=== PATIENT | female | born 1965 | race Caucasian/White ===

== ENCOUNTER 2018-03-23 21:26 | Emergency (ER) | payer BC ==
[2018-03-23 21:38] VITALS: BP 167/93; PULSE 90; TEMP 99.2; BMI 24.6
--- NOTE | 2018-03-23 22:06 | PDOC ---
History of Present Illness - General History Source: Patient Exam Limitations: No Limitations - History of Present Illness Initial Comments: 03/23/18 22:58 The patient is a 52 year old female with a significant past medical history of hypertension who presents to the ED with complaints of throat pain since last night. The patient reports a gradual onset of pain on the left side of her throat last night. She states she took two advil with no relief and did salt water gargles with slight relief. Patient went to Urgent Care earlier today, took an US, was diagnosed with peritonsillar abscess, given amoxicillin and discharged home. Patient was told to come to the ED if symptoms worsened. Patient states her throat pain now radiates to her left ear. Patient states she had a similar episode of peritonsillar abscess over 12 years ago that required outpatient IV antibiotics. Patient notes she has been in contact with people who have cold like symptoms. Denies fever or chills. Denies rhinorrhea. Denies headache. Denies chest pain or shortness of breath. Denies abdominal pain, nausea, vomiting, or diarrhea. Denies any other symptoms. Surgical hx: Tonsillectomy <Beck Panda - Last Filed: 03/23/18 22:58> <Sara Starks - Last Filed: 03/24/18 04:36> - General Chief Complaint: Abscess Boil Stated Complaint: HONG TONSILAR ABSCESS Time Seen by Provider: 03/23/18 21:33 Past History <Beck Panda - Last Filed: 03/23/18 22:58> - Past Medical History COPD: No HTN: Yes - Suicide/Smoking/Psychosocial Hx Smoking History: Never smoked <Sara Starks - Last Filed: 03/24/18 04:36> - Past Medical History Allergies/Adverse Reactions: Allergies Allergy/AdvReac Type Severity Reaction Status Date / Time No Known Allergies Allergy Unverified 03/23/18 21:31 Home Medications: Ambulatory Orders Amlodipine Besylate 5 mg PO DAILY 03/23/18 Amoxicillin/Potassium Clav [Amox-Clav 875-125 mg Tablet] 1 each PO 03/23/18 Review of Systems - Review of Systems Able to Perform ROS?: Yes Comments:: 03/23/18 22:58 CONSTITUTIONAL: Absent: fever, chills, diaphoresis, generalized weakness, malaise, loss of appetite HEENT: + throat pain Absent: rhinorrhea, nasal congestion, mouth swelling, ear pain, eye pain, visual Changes CARDIOVASCULAR: Absent: chest pain, syncope, palpitations, irregular heart rate, lightheadedness , peripheral edema RESPIRATORY: Absent: cough, shortness of breath, dyspnea with exertion, orthopnea, wheezing, stridor, hemoptysis GASTROINTESTINAL: Absent: abdominal pain, abdominal distension, nausea, vomiting, diarrhea, constipation, melena, hematochezia GENITOURINARY: Absent: dysuria, frequency, urgency, hesitancy, hematuria, flank pain, genital pain MUSCULOSKELETAL: Absent: myalgia, arthralgia, joint swelling SKIN: Absent: rash, itching, pallor HEMATOLOGIC/IMMUNOLOGIC: Absent: easy bleeding, easy bruising, lymphadenopathy, frequent infections ENDOCRINE: Absent: unexplained weight gain, unexplained weight loss, heat intolerance, cold intolerance NEUROLOGIC: Absent: headache, focal weakness or paresthesias, dizziness, unsteady gait, seizure, mental status changes, bladder or bowel incontinence PSYCHIATRIC: Absent: anxiety, depression, suicidal or homicidal ideation, hallucinations. All Other Systems: Reviewed and Negative <Beck Panda - Last Filed: 03/23/18 22:58> *Physical Exam - Vital Signs Last Vital Signs Temp Pulse Resp BP Pulse Ox 99.2 F 90 16 167/93 100 03/23/18 21:32 03/23/18 21:32 03/23/18 21:32 03/23/18 21:32 03/23/18 21:32 - Physical Exam Comments: 03/23/18 22:59 GENERAL: The patient is awake, alert, and fully oriented, in no acute distress. HEAD: Normal with no signs of trauma. EYES: Pupils equal, round and reactive to light, extraocular movements intact, sclera anicteric, conjunctiva clear with no pallor. ENT: + Erythema and mild edema of the left peritonsillar area with area of whitish purulent discharge, mildly enlarged left cervical lymph node. Ears normal, nares patent. Moist mucous membranes. NECK: Normal range of motion, supple without lymphadenopathy, JVD, or masses. LUNGS: Breath sounds equal, clear to auscultation bilaterally. No wheeze/ crackles. HEART: Regular rate and rhythm, normal S1 and S2 without murmur or rub. ABDOMEN: Soft/nontender/nondistended. BS wnl. No guarding or rebound. No palpable masses. No hepatosplenomegaly. EXTREMITIES: Normal range of motion, no edema. No clubbing or cyanosis. No cords, erythema, or tenderness. NEUROLOGICAL: Cranial nerves II through XII grossly intact. Normal speech, normal gait. PSYCH: Normal mood, normal affect. SKIN: Warm, Dry, normal turgor, no rashes or lesions noted. <Beck Panda - Last Filed: 03/23/18 22:58> - Vital Signs Last Vital Signs Temp Pulse Resp BP Pulse Ox 99.2 F 90 16 167/93 100 03/23/18 21:32 03/23/18 21:32 03/23/18 21:32 03/23/18 21:32 03/23/18 21:32 <Sara Starks - Last Filed: 03/24/18 04:36> ED Treatment Course - LABORATORY CBC & Chemistry Diagram: 03/23/18 23:05 03/23/18 23:05 <Sara Starks - Last Filed: 03/24/18 04:36> Medical Decision Making - Medical Decision Making Documentation has been prepared under my direction and personally reviewed by me in its entirety. I attest that this documented accurately reflects all work, treatment, procedures and medical decision making performed by me. As noted above, this 52-year-old woman was referred here from urgent care clinic where she was seen earlier with probable peritonsillar abscess on the left side of her pharynx (Was told to come to the emergency room if she had worsening pain). Patient had previous episode of peritonsillar abscess more than 12 years ago (patient is s/p tonsillectomy but it is thought that there was some residual lymphatic tissue retained). Although she had taken one dose of Augmentin, she continued to have pain in the area around the abscess so she came to the emergency room. Patient states that she can feel the area around the abscess draining purulent material. Exam as noted. Small amount of free pus on the left side of the pharynx noted without significant asymmetry of uvula or other evidence of significant edema Because of patient's worsening symptoms, CBC/chemistry profile sent. White blood cell count mildly elevated at 12,000; remainder of the laboratory evaluation including creatinine is normal Soft tissue CT of the neck with IV contrast performed: Preliminary interpretation by Imaging fashion buyer- tiny (0.9cm X 0.7 cm) abscess seen around the left tonsillar area with no evidence of other critical edema/masses/ asymmetry. Patient had been given 3 g of Unasyn IV as well as Toradol 30 mg IV. Patient states that she feels somewhat better than when she arrived in the ER. Because of the small size of the peritonsillar abscess, the patient will be discharged on the prescribed Augmentin course. She should follow-up with ear nose and throat physician: She has seen in the past; also, she will be given referral information for the Dr. Rodriguez group. She should return to the ER if she has severe pain, high fever or difficulty swallowing/breathing. <Sara Starks - Last Filed: 03/24/18 04:36> *DC/Admit/Observation/Transfer - Attestations Scribe Attestion: 03/23/18 22:59 Documentation prepared by Beck Panda, acting as back office medical assistant for Sara Starks MD <Beck Panda - Last Filed: 03/23/18 22:58> <Sara Starks - Last Filed: 03/24/18 04:36> Diagnosis at time of Disposition: Peritonsillar abscess - Discharge Dispostion Disposition: HOME Condition at time of disposition: Stable - Referrals Referrals: Hardeep Couch MD [Primary Care Provider] - Bob Rodriguez MD [Staff Physician] - Call tomorrow Luiz Ross [Non Staff, Medical] - - Patient Instructions Printed Discharge Instructions: DI for Peritonsillar Abscess -- Adult Additional Instructions: continue Augmentin as prescribed Continue ibuprofen/acetaminophen as needed for pain Return to ER immediately if you have difficulty swallowing or severe pain/high fever Follow-up with ENT (Dr. Michael jackson or Dr Ross) within the next 5 days No work tomorrow - Post Discharge Activity Forms/Work/School Notes: Back to Work
[2018-03-23 23:22] LABS: EOS % 0.5 % (0-4.5); HEMATOCRIT 37.4 % (32.4-45.2); HEMOGLOBIN 12.8 GM/dl (10.7-15.3); LYMPH % 6.1 % (8-40); MCH 31.7 pg (25.7-33.7); MCHC 34.3 g/dl (32.0-36.0); MEAN CELL VOLUME 92.6 fl (80-96); MEAN PLT VOLUME 7.2 fl (7.5-11.1); MONO % 7.8 % (3.8-10.2); NEUT % 84.6 % (42.8-82.8); PLATELET COUNT 390 K/MM3 (134-434); RBC 4.04 M/mm3 (3.60-5.2); RDW 12.9 % (11.6-15.6)
[2018-03-23 23:28] LABS: ALBUMIN 3.9 g/dl (3.5-5.0); ALK PHOS 73 U/L (32-92); ANION GAP 10 MMOL/L (8-16); BLOOD UREA NITROGEN 12 mg/dl (7-18); CALCIUM 8.6 mg/dl (8.4-10.2); CHLORIDE 104 mmol/L (98-107); CO2 21 mmol/L (22-28); CREATININE 0.9 mg/dl (0.6-1.3); GLUCOSE,RANDOM 117 mg/dl (74-106); POTASSIUM 3.6 mmol/L (3.5-5.1); SGOT/AST 24 U/L (10-42); SGPT/ALT 20 U/L (10-40); SODIUM 135 mmol/L (136-145); TOT PROT 6.6 g/dl (6.4-8.3)
[2018-03-23] MEDS ORDERED: AMPICILLIN NA/SULBACTAM NA 3 GM in SODIUM CHLORIDE 100 ML IVPB ONE (23:49)
[2018-03-23] MEDS ORDERED: AMPICILLIN NA/SULBACTAM NA 3 GM VIAL ONE (23:54)
[2018-03-23] MEDS ORDERED: KETOROLAC TROMETHAMINE 30 MG/1 ML VIAL IVPUSH ONE (23:55)
[2018-03-23] MEDS ORDERED: KETOROLAC TROMETHAMINE 30 MG/1 ML VIAL ONE (23:57)
== END 2018-03-24 01:53 | disposition home or self-care (01) ==
LOC: FER 21:26
PROC: 3E03329 Introduction of Other Anti-infective into Peripheral Vein, Percutaneous Approach (ICD-10-PCS; principal; 2018-03-23)
PROC: 3E0333Z Introduction of Anti-inflammatory into Peripheral Vein, Percutaneous Approach (ICD-10-PCS; 2018-03-23)
DX: J36 Peritonsillar abscess (principal)
CPT/HCPCS: 36415; 70491-TC; 80053; 85025; 87040; 87070; 87430; 99282-25